=== PATIENT | male | born 1985 | race Hispanic/Latino ===

== ENCOUNTER 2017-04-04 22:04 | Emergency (ER) | payer OTHER ==
[~2017-04-04] VITALS: Ht 170.2 cm; Wt 86.4 kg
[2017-04-04 22:05] VITALS: BP 135/80
[2017-04-04] MEDS ORDERED: DERMABOND TOPICAL SKIN ADHESIVE TOP ONE (23:45)
== END 2017-04-05 00:07 | disposition home or self-care (01) ==
LOC: M ED 22:04
DX: S01.111A Laceration without foreign body of right eyelid and periocular area, initial encounter (principal); W21.02XA Struck by soccer ball, initial encounter; Y92.89 Other specified places as the place of occurrence of the external cause; Y93.66 Activity, soccer; Y99.9 Unspecified external cause status